=== PATIENT | male | born 1960 | race Caucasian/White ===

== ENCOUNTER → 2019-09-27 | Outpatient (CLI) | payer OTHER ==
[~2019-09-27] MED LIST: ECOT81TA5 PO; GLUC500C37 PO; NAPR375T5 PO; OMEP-218 PO; SAW1CAPS2 PO; VITA500T10 PO; ZINC1TAB2 PO
--- NOTE | 2019-09-27 16:54 | ECGEPIP ---
[facility] Test Date: 2019-09-27 Pat Name: TAYLOR DOWD Department: Room: - Gender: Male Motel Keeper: ANDREW : 1960 Requested By: YOLIE LAND Order Number: [id number] Reading MD: Mami Dee Measurements Intervals Wallace Rate: 56 P: 57 SC: 175 QRS: 3 QRSD: 93 T: 16 QT: 412 QTc: 398 Interpretive Statements SINUS BRADYCARDIA OTHERWISW WNL NO PRIOR Electronically Signed on 09-27-2019 16:54:33 EST by Mami Dee
== END ==
LOC: M EKG 16:13
PROVIDERS: ATTEND Anesthesiology
DX: Z01.818 Encounter for other preprocedural examination (principal)

== ENCOUNTER 2019-10-10 05:45 | Day surgery (SDC) | payer OTHER ==
[~2019-10-10] VITALS: Ht 177.8 cm; Wt 94.3 kg
[2019-10-10] MEDS ORDERED: dexameTHASONE 10 MG/1 ML VIAL PRES.FREE (J1100) ONE (05:46)
[2019-10-10] MEDS ORDERED: ROPIvacaine 0.5% 30 ML INJECTION (J2795 PER 1MG) ONE (05:46)
[2019-10-10] MEDS ORDERED: ceFAZolin SOD 2 GM in IV 1 EA IV ONE (06:00)
[2019-10-10] MEDS ORDERED: LR 1,000 ML IV ONE (06:00)
[2019-10-10] MEDS ORDERED: fentaNYL 100 MCG/2 ML INJECTION (J3010) As Ordered ONE (06:39)
[2019-10-10] MEDS ORDERED: MIDAZOLAM INJ 2 MG/2 ML VIAL (J2250) As Ordered ONE (06:39)
[2019-10-10] MEDS ORDERED: BUPIVACAINE HCL 0.5% 30 ML VIAL As Ordered ONE (06:43)
[2019-10-10] MEDS ORDERED: fentaNYL 250 MCG/5 ML INJECTION (J3010) As Ordered ONE (06:52)
[2019-10-10] MEDS ORDERED: PHENYLephrine HCL 500 MCG/5 ML (100MCG/ML) SYRINGE (J2370) As Ordered ONE (06:53)
[2019-10-10] MEDS ORDERED: ONDANSETRON 4MG/2ML VIAL (J2405) As Ordered ONE (06:53)
[2019-10-10] MEDS ORDERED: ePHEDrine SULFATE 25 MG/5 ML(5MG/ML) SYRINGE As Ordered ONE (06:53)
[2019-10-10] MEDS ORDERED: dexameTHASONE 4 MG/ML 1ML VIAL (J1100) As Ordered ONE (06:53)
[2019-10-10] MEDS ORDERED: propofoL 200 MG/20 ML VIAL As Ordered ONE (06:56)
[2019-10-10] MEDS ORDERED: SUGAMMADEX SODIUM 500 MG/5 ML VIAL (BRIDION) As Ordered ONE (06:56)
[2019-10-10] MEDS ORDERED: ROCURONIUM BROMIDE 50 MG/5 ML VIAL As Ordered ONE (06:56)
[2019-10-10] MEDS ORDERED: LIDOCAINE 2% INJ 100 MG/5 ML SDV (FOR ANES.) As Ordered ONE (06:56)
[2019-10-10] MEDS ORDERED: EPINEPHrine 1MG/ML INJ 30ML MD-VIAL As Ordered ONE (07:17)
[2019-10-10] MEDS ORDERED: MIDAZOLAM INJ 2 MG/2 ML VIAL (J2250) IV ONE (07:45)
[2019-10-10] MEDS ORDERED: fentaNYL 100 MCG/2 ML INJECTION (J3010) IV ONE (07:45)
[2019-10-10] MEDS ORDERED: ESMOLOL INJ 100MG/10ML VIAL As Ordered ONE (08:45)
[2019-10-10] MEDS ORDERED: REMIFENTANIL 1MG 3ML VIAL As Ordered ONE (08:49)
[2019-10-10] MEDS ORDERED: LR 1,000 ML IV SCH (10:45)
[2019-10-10] MEDS ORDERED: ONDANSETRON 4MG/2ML VIAL (J2405) IV PRN (10:45)
[2019-10-10] MEDS ORDERED: oxyCODONE 5MG TAB PO PRN ×2 (10:45)
[2019-10-10] MEDS ORDERED: fentaNYL 100 MCG/2 ML INJECTION (J3010) IV PRN (10:45)
--- NOTE | 2019-10-10 13:09 | RO ---
DATE OF PROCEDURE: 10/10/2019 PREOPERATIVE DIAGNOSIS: Left type 2 superior labrum anterior and posterior (SLAP) tear and rotator cuff tear and impingement. POSTOPERATIVE DIAGNOSIS: Left type 2 superior labrum anterior and posterior (SLAP) tear and rotator cuff tear and impingement with the addition of anterior labral cyst. PROCEDURE: Left open biceps tenodesis, arthroscopic rotator cuff repair, arthroscopic distal clavicle excision with approximately 1.1 cm arthroscopic subacromial decompression and acromioplasty, along with arthroscopic cystic excision. SURGEON: Doyle Shrestha MD FINANCE TEACHER: Melody Germain PA-C, who was essential for suture management, retraction. ANESTHESIA: General. PREOPERATIVE ANTIBIOTICS: 2 grams of Ancef. BLOOD LOSS: 10 mL. COMPLICATIONS: None. INDICATION: A 59-year-old male who failed nonoperative modes of treatment. We discussed the risks and benefits of surgical intervention, including but not limited to infection, damage to underlying structures, incomplete relief, and the patient wished to proceed. OPERATIVE DESCRIPTION: The patient was brought back to the operating room (OR) in the supine position and underwent general anesthesia. He was placed into a beach chair, at which point the left arm was prepped and draped in the usual fashion. We then had time-out confirming site, side, and surgery. We then made a stab incision for the posterior portal, entered the glenohumeral joint, quickly identifying a rotator interval and establishing our anterior portal and using a 7 x 7 Arthrex cannula, at which point we investigated the joint, identifying type II SLAP tear with significant bicipital fraying at the biceps labral junction, along with a lipstick sign within the groove. We also identified a large anterior paralabral cyst. The subscapularis tendon was intact. The glenohumeral and joint had minimal arthritic change. We then identified the anterolateral rotator cuff. There was a high-grade partial tear. We were easily able to penetrate through to the subacromial space, at which point we used a combination of shaver and burner to debride the area and prep the bone. We then tagged the biceps tendon with a FiberLink suture and liberate it from the labral junction with an upbiter and use a shaver to debride the stump, at which point we prepped the top of the groove for an intraarticular biceps tenodesis, punched a hole while inserting the 4.75 SwiveLock. For biceps arthroscopic left arthrodesis, the tag suture was lost, and we lost control of the biceps tendon, and it disappeared down the groove. At this point, we removed the anchor, irrigated the joint and went up the subacromial space and then used combination or shaver and burner to do a subacromial decompression. We then used the bur to do an acromioplasty on the anterior leading edge along with a distal clavicle excision, at which point we identified the rotator cuff tear, debrided the edges, and prepped the bone once again using combination of burner and shaver. We then established a medial anchor with FiberTape, 4.75 SwiveLock on the articular margin. We then passed an anterior and posterior limb with the FiberTape through the anterior and posterior cuff. Once this was done, we were able to reduce the in place with the sutures utilizing a lateral anchor along the lateral metaphysis 4.75 SwiveLock. We were very happy with the reduction of the and there was no need for using the stay sutures. This was removed, as well. The suture limbs were cut. We irrigated the area thoroughly and transitioned to our open approach for a biceps tenodesis. We then made a longitudinal incision along the edge of the deltoid, controlled superficial bleeding with Bovie, used a to go down and identify the anterior compartment of the arm. The fascia over the biceps was penetrated. We then used the [employer] to elevate the deltoid to expose the long head of the biceps. Using direct manipulation, we were able to identify the bicipital groove between the tuberosities and remove the long head of the biceps. We then whipstitched it with the proximal biceps tenodesis kit from Arthrex using a FiberWire. We then drilled our pinhole and loaded the button. Once this was loaded, we sunk the button into the cortex of the humerus. This pin was located just lower pec, and we then used one limb of the suture to tag the biceps and tie knots over top once it was securely down in place. We then irrigated the wound thoroughly, closed with 2-0 Vicryl and 3-0 nylon, and 3-0 nylon for the rest of the arthroscopic incisions. The patient's wounds were dressed. The patient was then awakened and placed in a sling and taken to postanesthesia care unit (PACU) in stable condition. POSTOPERATIVE PLAN: The patient will work on pain control and gentle range of motion of the wrist and elbow. Will see him in the office in 2 weeks to do a wound check and discuss .
[2019-10-10 13:35] VITALS: BP 110/65
== END 2019-10-10 13:45 | disposition home or self-care (01) ==
LOC: M SDC 05:45
PROVIDERS: ATTEND Orthopaedic Surgery Hand Surgery
DX: M75.102 Unspecified rotator cuff tear or rupture of left shoulder, not specified as traumatic (principal); M75.42 Impingement syndrome of left shoulder; S43.432A Superior glenoid labrum lesion of left shoulder, initial encounter; X58.XXXA Exposure to other specified factors, initial encounter; Y92.89 Other specified places as the place of occurrence of the external cause; Y93.9 Activity, unspecified; Y99.9 Unspecified external cause status; K21.9 Gastro-esophageal reflux disease without esophagitis; Z79.82 Long term (current) use of aspirin; Z79.899 Other long term (current) drug therapy; Z87.891 Personal history of nicotine dependence; F17.220 Nicotine dependence, chewing tobacco, uncomplicated
CPT/HCPCS: 23430; 29824; 29826; 29827; 64415; C1713; J0690; J1100; J2250; J2370; J2405; J2795; J3010

== ENCOUNTER → 2020-01-10 | Outpatient (CLI) | payer OTHER ==
--- NOTE | 2020-01-15 13:41 | REP ---
MRI LEFT SHOULDER: TECHNIQUE: Axial T2 fat sat, gradient echo, sagittal oblique T2 fat sat, coronal oblique T1, T2 fat sat. COMPARISON: 07/05/2019 Since the prior study, the patient has had surgery with biceps tenodesis, rotator cuff repair, distal clavicle excision, subacromial decompression and acromioplasty 10/10/2019. There is abnormal signal in the anterior supraspinatus tendon most consistent with a full thickness partial tear. There are two anchors noted in the humeral head. The other rotator cuff tendons appear intact. Acromion is type 2. There is mild fluid in the interval between the distal clavicle and acromion. There is edema in the adjacent superior aspect of the anterior deltoid muscle. No fluid is seen in the bicipital groove status post biceps tenodesis. Abnormal signal is seen throughout the superior labrum similar to the prior study, compatible with a SLAP tear. Other portions of the labrum appear intact. There is mild marrow edema in the distal end of the clavicle and in the acromion. IMPRESSION: Full thickness partial tear anterior supraspinatus tendon. Mild fluid in the interval between the distal clavicle and acromion both of which demonstrate mild marrow edema. There is edema in the superior aspect of the anterior deltoid muscle. Abnormal signal is again seen in the superior labrum in this patient with SLAP tear, appearing fairly similar to the prior MRI. Electronically Signed by Bao Hamlin MD 01/16/2020 01:05 P
== END ==
LOC: M RAD 12:30
PROVIDERS: ATTEND Orthopaedic Surgery Hand Surgery
DX: S46.012D Strain of muscle(s) and tendon(s) of the rotator cuff of left shoulder, subsequent encounter (principal); X58.XXXD Exposure to other specified factors, subsequent encounter; Y92.9 Unspecified place or not applicable